=== PATIENT | female | born 1995 | race Hispanic/Latino ===

== ENCOUNTER 2017-06-06 13:43 | Day surgery (SDC) | payer OTHER ==
[2017-06-06] MEDS ORDERED: Ondansetron HCl/PF 4 MG/2 ML Vial IVP PRN (14:46)
[2017-06-06] MEDS ORDERED: Lactated Ringer's 1,000 ML IV SCH ×2 (15:00)
[2017-06-06 15:42] LABS: #Lymphocytes 1.5 thou/uL (1.20-3.40); #Monocytes 0.8 thou/uL (0.11-0.59); #Neutrophils 8.7 thou/uL (1.40-6.50); %Basophils 0.1 % (0.0-1.0); %Eosinophils 0.2 % (0.0-10.0); %Lymphocytes 13.5 % (21.0-51.0); %Monocytes 6.9 % (0.0-10.0); Hematocrit 30.4 % (36.0-47.0); Mean Platelet Volume 6.6 fL (7.4-10.4); Red Blood Cell (RBC) Count 3.34 mill/uL (4.20-5.40)
[2017-06-06 16:01] LABS: ALT (SGPT) 8 U/L (8-55); AST (SGOT) 10 U/L (5-34); Alkaline Phosphatase 118 U/L (40-150); Anion Gap 15 mmol/L (10-20); BUN (Urea Nitrogen) 6 mg/dL (7.0-18.7); Bilirubin, Total 0.4 mg/dL (0.2-1.2); Calc. Creatinine Clearance 0 mL/min (70-130); Calcium 8.2 mg/dL (7.8-10.44); Carbon Dioxide 24 mmol/L (22-29); Chloride 101 mmol/L (98-107); Estimated GFR-MDRD Greater than 90; Globulin 2.9 g/dL (2.4-3.5); Protein, Total 5.6 g/dL (6.0-8.3)
--- NOTE | 2017-06-06 19:22 | ULT ---
LIMITED OB ULTRASOUND: Clinical history: 33 week gestation with dehydration. FINDINGS: There is evidence of a live intrauterine gestation which demonstrate cardiac activity of 162 b eats/minute. On the basis of sonographic images, this corresponds to an approximately 28 week 6 day gestation. Estimated weight is 1273 grams placing the fetus at the estimated 23 percentile by Hadlock criteria. Estimated delivery by ultrasound is 08-21-17. Fetus is vertex lie. Placenta is loc ated primarily in a posterior location. MIKE measures 16.9 cm. IMPRESSION: Live intrauterine gestation, as discussed above. POS: [facility]
--- NOTE | 2017-06-06 20:21 | PRG ---
DATE OF SERVICE: 06/06/2017 TIME OF SERVICE: 1730 hours PRESENTING COMPLAINT: Nausea and vomiting, dehydration at 29 weeks gestation. HISTORY OF PRESENT ILLNESS: Ms. Fish is a 21-year-old 2, para 1, who sees Dr. Tommy Rico at [facility]. She presents with complaining of 2 days of nausea and vomiting, decr eased movement. She denies rupture of membranes. She denies fever. OB AND [employer]KH[employer]EDGE HISTORY: x1, otherwise unremarkable. HISTORY: A positive, antibody negative, Pap negative, rubella immune, VDRL nonreactive. PAST MEDICAL HISTORY: Denies. PAST SURGICAL HISTORY: Denies. ALLERGIES: Denies. MEDICATIONS: vitamins. SOCIAL HISTORY: Denies tobacco, alcohol, or drug abuse. FAMILY HISTORY: Noncontributory. REVIEW OF SYSTEMS: Noncontributory. PHYSICAL EXAMINATION: GENERAL: female initially quite, pale on initial presentation, now looking much happier af ter IV fluids. VITAL SIGNS: Initial presentation temperature is 97.6, respirations 18, blood pressure 118/72, puls e 92. HEENT: Within normal limits. LUNGS: Clear to auscultation bilaterally. HEART: Regular rhythm. BREASTS: No masses bilaterally. ABDOMEN: Soft, nontender, no rebound or guarding. Fundal height 29 cm. FHTs 140s. PELVIC: Vulva without lesions. Vagina without discharge. Cervix exam deferred. EXTREMITIES: Without clubbing, cyanosis or edema. INITIAL LABORATORY DATA: Reveals a white count of 11,000, hematocrit of 30%. Negative urinalysis e xcept for positive ketones and base met within normal limits. SUMMARY OF HOSPITAL COURSE: The patient received 2 liters of IV fluids and has spontaneous resoluti on of her nausea. She has declined Zofran and felt much better. She is discharged home with follow up with Dr. Rico and diagnosis of nausea and vomiting of .
== END 2017-06-06 17:38 | disposition home or self-care (01) ==
LOC: L&D/OP 13:43
PROVIDERS: ATTEND Family Medicine
DX: O21.9 Vomiting of pregnancy, unspecified (principal); E86.0 Dehydration; Z79.899 Other long term (current) drug therapy; Z3A.29 29 weeks gestation of pregnancy
CPT/HCPCS: 36415; 59025; 76815; 80053; 85025; 96360; 96361